=== PATIENT | male | born 1950 | race Caucasian/White ===

== ENCOUNTER 2017-10-24 19:24 | Emergency (ER) | payer OTHER ==
[2017-10-24 20:15] LABS: Urine Blood 2+ (NEG); Urine Glucose NEGATIVE (NEG); Urine Protein 3+ (NEG); Urine Specific Gravity >1.030 (1.005-1.030)
[2017-10-24 20:17] LABS: Urine Bacteria <20 /HPF (NONE SEEN); Urine Culture Reflex Order NOT NEEDED
[2017-10-24 20:43] LABS: Absolute Lymphocytes (CBC) 0.4 K/uL (0.7-4.9); Absolute Monocytes 0.8 K/uL (0.1-1.3); Absolute Neutrophil 13.1 K/uL (1.8-8.0); Basophils % 0.9 % (0-1.3); Eosinophils % 0.3 % (0-4.4); Lymphocytes % 2.8 % (15.3-44.8); MCH 30.7 pg (27.0-35.0); MCV 91.8 fL (80-100); Monocytes % 5.8 % (3.3-12.3); RBC Red Blood Cell Count 4.57 M/uL (4.33-5.43)
[2017-10-24 20:47] LABS: Protime INR 1.22
[2017-10-24 21:01] LABS: Albumin 3.6 g/dL (3.4-5.0); Bilirubin Direct 0.3 mg/dL (0-0.2); Bilirubin Total 1.3 mg/dL (0.2-1.0); CKMB Creatine Kinase MB 2.9 ng/mL (0.3-3.6); Potassium 3.6 mmol/L (3.5-5.1); Protein, Total 7.5 g/dL (6.4-8.2)
[2017-10-24 21:25] LABS: Blood Morphology Comment NOT SEEN (NOT SEEN); Platelet Estimate ADEQ; Urine White Blood Cell Casts OK
--- NOTE | 2017-10-24 23:11 | EDPHYS ---
Physician Documentation [facility] Name: Luis Johnson Age: 67 yrs Sex: Male : 1950 Arrival Date: 10/24/2017 Time: 19:27 Bed 25 Private MD: Brooklyn Casas H ED Physician Ryan Mclaughlin HPI: 10/24 20:00 This 67 yrs old Male presents to ER via Ambulatory with complaints of Fever. cp 20:00 The patient reports fever, that was measured at 103 degrees Fahrenheit. Onset: The cp symptoms/episode began/occurred 3 day(s) ago. 20:00 Associated signs and symptoms: Pertinent positives: backache, chills, Pertinent cp negatives: abdominal pain, altered mental status, chest pain, cough, diarrhea, skin rash, sore throat, vomiting. 20:00 Severity of symptoms: in the emergency department the symptoms have improved cp moderately, after taking tylenol at Urgent Care. 20:00 The patient has been recently seen at an urgent care, just prior to arrival, for cp similar complaints, and was sent to the [facility] Emergency Department for further evaluation, UA performed. Patient reports he recently returned from vacation this weekend and reports fever for past 3 days. Reports that while on vacation, did have some shortness of breath while hiking but denies any chest pain. Historical: - Allergies: 19:37 lactose (bulk); aj - Home Meds: 19:37 None [Active]; aj - PMHx: 19:37 None; aj - PSHx: 19:37 Shoulder surgery; aj - Immunization history:: Adult Immunizations up to date. - Social history:: Smoking status: Patient uses tobacco products. - Ebola Screening: : Patient negative for fever greater than or equal to 101.5 degrees Fahrenheit, and additional compatible Ebola Virus Disease symptoms Patient denies exposure to infectious person Patient denies travel to an Ebola-affected area in the 21 days before illness onset No symptoms or risks identified at this time. ROS: 20:05 Constitutional: Positive for chills, Negative for fever, poor PO intake. cp 20:05 Eyes: Negative for injury, pain, redness, and discharge. cp 20:05 ENT: Negative for drainage from ear(s), ear pain, sore throat, difficulty swallowing, difficulty handling secretions. 20:05 Neck: Negative for pain with movement, pain at rest, stiffness, tenderness, bony tenderness. 20:05 Cardiovascular: Negative for chest pain, edema, palpitations. 20:05 Respiratory: Negative for cough, shortness of breath, wheezing. 20:05 Abdomen/GI: Negative for abdominal pain, nausea, vomiting, and diarrhea, black/tarry stool, rectal bleeding. 20:05 Back: Negative for pain at rest, pain with movement, radiated pain. 20:05 : Negative for urinary symptoms. 20:05 Skin: Negative for cellulitis, rash. 20:05 Neuro: Negative for altered mental status, dizziness, headache, weakness. 20:05 All other systems are negative. Exam: 20:11 Constitutional: The patient appears in no acute distress, alert, awake, cp non-diaphoretic, non-toxic, well developed, well nourished. 20:11 Head/Face: Normocephalic, atraumatic. Eyes: Pupils equal round and reactive to light, cp extra-ocular motions intact. Lids and lashes normal. Conjunctiva and sclera are non-icteric and not injected. Cornea within normal limits. Periorbital areas with no swelling, redness, or edema. ENT: Nares patent. No nasal discharge, no septal abnormalities noted. Tympanic membranes are normal and external auditory canals are clear. Oropharynx with no redness, swelling, or masses, exudates, or evidence of obstruction, uvula midline. Mucous membranes moist. 20:11 Neck: ROM/movement: is normal, is supple, without pain, no range of motions limitations, no meningismus, no nuchal rigidity, Lymph nodes: no appreciated lymphadenopathy. 20:11 Chest/axilla: Inspection: normal, Palpation: is normal, no crepitus, no tenderness. 20:11 Cardiovascular: Rate: normal, Rhythm: regular, Pulses: Pulses are 2+ in right radial artery and left radial artery. Edema: is not appreciated, JVD: is not appreciated. 20:11 Respiratory: the patient does not display signs of respiratory distress, Respirations: normal, no use of accessory muscles, no retractions, no splinting, no tachypnea, labored breathing, is not present, Breath sounds: are clear throughout, no decreased breath sounds, no stridor, no wheezing. 20:11 Abdomen/GI: Inspection: abdomen appears normal, Bowel sounds: active, all quadrants, Palpation: abdomen is soft and non-tender, in all quadrants, rebound tenderness, is not appreciated, voluntary guarding, is not appreciated, involuntary guarding, is not appreciated. 20:11 Back: pain, that is mild, of the low back area, ROM is normal, CVA tenderness, is absent. 20:11 Musculoskeletal/extremity: Exam is negative for decreased range of motion, edema, injury. 20:11 Skin: cellulitis, is not appreciated, no rash present. 20:11 Neuro: Orientation: to person, place \T\ time. Mentation: lucid, able to follow commands, Cerebellar function: is grossly normal, Motor: moves all fours, strength is normal, Sensation: no obvious gross deficits. 20:15 ECG was reviewed by the Attending Physician. Vital Signs: 19:37 BP 109 / 76; Pulse 85; Resp 19; Temp 99.1; Pulse Ox 99% on R/A; Weight 90.72 kg; Height aj 6 ft. 4 in. (193.04 cm); 19:50 BP 109 / 72; Pulse 74; Resp 18; Pulse Ox 98% ; tl3 21:30 BP 112 / 77; Pulse 94; Resp 18; Pulse Ox 98% on R/A; mt 19:37 Body Mass Index 24.34 (90.72 kg, 193.04 cm) aj MDM: 19:40 Patient medically screened. cp 22:45 Data reviewed: vital signs, nurses notes, lab test result(s), EKG, radiologic studies, cp plain films. 22:45 Counseling: I had a detailed discussion with the patient and/or guardian regarding: Reviewed repeat troponin. Went to discuss elevated troponin level with patient, but patient has left ED w/o notification to nurse or staff. 22:50 ED course: Spoke with patient at home number listed in chart concerning repeat elevated cp troponin. Patient refuses to return to ED for admission and reports he will f/u with DR Casas tomorrow.. 23:59 ED course: called patient after demanding to leave notified him that his heart marker gs was still elevated and needed to return and have a mainframe developer see him rosa. he says he will see dr casas tomorrow. 10/24 19:59 Order name: Urine Microscopic Only; Complete Time: 20:36 cp 10/24 20:36 Interpretation: Normal except: URBC 5-10. cp 10/24 19:59 Order name: Basic Metabolic Panel; Complete Time: 21:08 cp 10/24 21:08 Interpretation: Normal except: NA 132; BUN 25; GFR 61. cp 10/24 19:59 Order name: Blood Culture Adult (2) cp 10/24 19:59 Order name: CBC with Diff; Complete Time: 21:26 cp 10/24 21:09 Interpretation: Normal except: WBC 14.5; AMIE% 90.2; LYM% 2.8; NEUT A 13.1; LYMA 0.4. cp 10/24 19:59 Order name: Ckmb; Complete Time: 21:08 cp 10/24 19:59 Order name: CPK; Complete Time: 21:08 cp 10/24 19:59 Order name: Lactate; Complete Time: 21:08 cp 10/24 19:59 Order name: LFT's; Complete Time: 21:08 cp 10/24 21:09 Interpretation: Normal except: BILIT 1.3; BILID 0.3; GLOB 3.9; A/G 0.9. cp 10/24 19:59 Order name: Lipase; Complete Time: 21:08 cp 10/24 19:59 Order name: Procalcitonin; Complete Time: 21:26 cp 10/24 21:26 Interpretation: Reviewed. 10/24 19:59 Order name: Protime (+inr); Complete Time: 21:08 cp 10/24 21:27 Interpretation: Normal except: PT 14.4. cp 10/24 19:59 Order name: Ptt, Activated; Complete Time: 21:08 cp 10/24 19:59 Order name: Troponin (emerg Dept Use Only); Complete Time: 21:17 cp 10/24 21:18 Interpretation: TROPED 2.35; Reviewed. cp 10/24 20:05 Order name: Urine Dipstick--Ancillary (enter results); Complete Time: 20:36 rg2 10/24 20:36 Interpretation: Normal except: USPGR >1.030; UKET 1+; UBLD 2+; UPROT 3+. cp 10/24 19:59 Order name: Accucheck; Complete Time: 20:24 cp 10/24 19:59 Order name: Cardiac monitoring; Complete Time: 20:23 cp 10/24 19:59 Order name: EKG - Nurse/Tech; Complete Time: 20:23 10/24 19:59 Order name: IV Saline Lock - Large Bore; Complete Time: 20:23 10/24 19:59 Order name: Labs collected and sent; Complete Time: 20:23 10/24 19:59 Order name: O2 Per Protocol; Complete Time: 20:23 10/24 19:59 Order name: O2 Sat Monitoring; Complete Time: 20:23 10/24 19:59 Order name: Urine Dipstick-Ancillary (obtain specimen); Complete Time: 20:23 10/24 20:24 Order name: Flu; Complete Time: 21:47 mt 10/24 20:37 Order name: XRAY Chest (1 view) 10/24 20:48 Order name: CBC Smear Scan; Complete Time: 21:26 [facility] 10/24 22:02 Order name: Troponin I; Complete Time: 22:42 cp EC:15 Rate is 73 beats/min. Rhythm is regular. CO interval is normal. QRS interval is cp prolonged at 106 msec. QT interval is normal. T waves are Flattened in lead aVL. Interpreted by me. Reviewed by me. Administered Medications: No medications were administered Disposition: 10/25 06:45 Co-signature as Attending Physician, Ryan Mclaughlin MD. Disposition: 10/24/17 23:10 Patient left the facility after being seen by provider. Preliminary diagnosis is Non-ST elevation (NSTEMI) myocardial infarction. - Patient left due to feeling better. - Condition is Stable. - Problem is new. - Symptoms have improved. Signatures: Dispatcher [employer] [facility] Luana Fritz, RN RN Wyatt Jha PA PA Ryan Mclaughlin MD MD Patito Mckeon RN RN tl3 Corrections: (The following items were deleted from the chart) 10/24 21:09 21:09 Normal except: WBC 14.5; AMIE% 90.2; LYM% 2.8; NEUT A 13.1. cp cp 22:04 21:31 Chest Abdomen Pelvis W Con+CT.RAD.BRZ ordered. [facility] 23:20 23:10 10/24/2017 23:10 Patient left the facility after being seen by provider. tl3 Preliminary diagnosis is Non-ST elevation (NSTEMI) myocardial infarction. Reason stated they are leaving due to feeling better. Condition is Stable. Problem is new. Symptoms have improved. cp
--- NOTE | 2017-10-24 23:11 | ER ---
Nurse's Notes [facility] Name: Luis Johnson Age: 67 yrs Sex: Male : 1950 Arrival Date: 10/24/2017 Time: 19:27 Bed 25 Private MD: Brooklyn Casas H Diagnosis: Non-ST elevation (NSTEMI) myocardial infarction Presentation: 10/24 19:36 Presenting complaint: Patient states: Reports fever for 3 days, Sent from urgent care. aj Transition of care: patient was not received from another setting of care. Onset of symptoms was October 21, 2017. Risk Assessment: Do you want to hurt yourself or someone else? Patient reports no desire to harm self or others. Initial Sepsis Screen: Does the patient meet any 2 criteria? No. Patient's initial sepsis screen is negative. Does the patient have a suspected source of infection? No. Patient's initial sepsis screen is negative. Care prior to arrival: None. 19:36 Method Of Arrival: Ambulatory 19:36 Acuity: RODRI 4 aj Triage Assessment: 19:37 General: Appears in no apparent distress. comfortable, Behavior is calm, cooperative, aj appropriate for age. Pain: Denies pain. Neuro: Level of Consciousness is awake, alert, obeys commands, Oriented to person, place, time, situation, Appropriate for age. Respiratory: Airway is patent Respiratory effort is even, unlabored, Respiratory pattern is regular, symmetrical. Derm: Skin is intact, is healthy with good turgor, Skin is pink, warm \T\ dry. normal. Historical: - Allergies: 19:37 lactose (bulk); aj - Home Meds: 19:37 None [Active]; aj - PMHx: 19:37 None; aj - PSHx: 19:37 Shoulder surgery; aj - Immunization history:: Adult Immunizations up to date. - Social history:: Smoking status: Patient uses tobacco products. - Ebola Screening: : Patient negative for fever greater than or equal to 101.5 degrees Fahrenheit, and additional compatible Ebola Virus Disease symptoms Patient denies exposure to infectious person Patient denies travel to an Ebola-affected area in the 21 days before illness onset No symptoms or risks identified at this time. Screenin:50 Abuse screen: Denies threats or abuse. Nutritional screening: No deficits noted. tl3 Tuberculosis screening: No symptoms or risk factors identified. Fall Risk None identified. Assessment: 19:50 General: Appears in no apparent distress. comfortable, slender, well groomed, well tl3 developed, well nourished, Behavior is calm, cooperative, appropriate for age. Pain: Denies pain. Pain: Complains of pain in joint discomfort. Neuro: Level of Consciousness is awake, alert, obeys commands, Oriented to person, place, time, situation, Appropriate for age. Cardiovascular: Heart tones S1 S2 present Patient's skin is warm and dry. Respiratory: Airway is patent Respiratory effort is even, unlabored, Respiratory pattern is regular, symmetrical, Breath sounds are clear bilaterally. GI: No signs and/or symptoms were reported involving the gastrointestinal system. : Urine is jimmy colored. EENT: No signs and/or symptoms were reported regarding the EENT system. Derm: No signs and/or symptoms reported regarding the dermatologic system. Musculoskeletal: No signs and/or symptoms reported regarding the musculoskeletal system. 21:30 Reassessment: Patient appears in no apparent distress at this time. No changes from tl3 previously documented assessment. Patient and/or family updated on plan of care and expected duration. Pain level reassessed. Patient is alert, oriented x 3, equal unlabored respirations, skin warm/dry/pink. pt states that he is feeling much better. 22:33 Reassessment: Patient appears in no apparent distress at this time. No changes from tl3 previously documented assessment. Patient and/or family updated on plan of care and expected duration. Pain level reassessed. Patient is alert, oriented x 3, equal unlabored respirations, skin warm/dry/pink. pt does not want to stay, Dr Mclaughlin and Beto have stressed the importance of staying due to elevated cardiac enzyme lab levels. Vital Signs: 19:37 BP 109 / 76; Pulse 85; Resp 19; Temp 99.1; Pulse Ox 99% on R/A; Weight 90.72 kg; Height aj 6 ft. 4 in. (193.04 cm); 19:50 BP 109 / 72; Pulse 74; Resp 18; Pulse Ox 98% ; tl3 21:30 BP 112 / 77; Pulse 94; Resp 18; Pulse Ox 98% on R/A; mt 19:37 Body Mass Index 24.34 (90.72 kg, 193.04 cm) ED Course: 19:27 Patient arrived in ED. am2 19:27 Brooklyn Casas DO is Private Physician. am2 19:37 Triage completed. aj 19:37 Arm band placed on right wrist. Patient placed in an exam room. aj 19:39 Wyatt Robles PA is PHCP. cp 19:40 Ryan Mclaughlin MD is Attending Physician. cp 19:42 Patito Mckeon, JENNIFER is Primary Nurse. tl3 19:50 Patient has correct armband on for positive identification. Bed in low position. Call tl3 light in reach. Side rails up X 1. Adult w/ patient. Pulse ox on. NIBP on. 19:50 No provider procedures requiring assistance completed. Inserted saline lock: 20 gauge tl3 in right antecubital area, using aseptic technique. Blood collected. 21:03 XRAY Chest (1 view) In Process Unspecified. EDMS 22:33 IV discontinued, intact, bleeding controlled, No redness/swelling at site. Pressure tl3 dressing applied. 23:07 Brooklyn Casas DO is Referral Physician. cp Administered Medications: No medications were administered Outcome: 22:33 AMA AMA form signed tl3 22:36 Condition: stable tl3 22:36 Instructed on follow up and referral plans. the need for admit. 23:20 Patient left the ED. tl3 Signatures: Dispatcher [employer] Luana Goins, RN RN Wyatt Jha PA PA cp Moreno, Amanda am Aimee Meyer mt, Tammy, RN RN tl3
[2017-10-24 23:32] VITALS: TEMP 99.1
[2017-10-24 23:33] VITALS: O2SAT 98
[2017-10-24 23:34] VITALS: BP 112/77
--- NOTE | 2017-10-25 07:54 | RAD REPORT ---
EXAM DESCRIPTION: RAD - Chest Single View - 10/24/2017 9:03 pm CLINICAL HISTORY: Fever COMPARISON: None. TECHNIQUE: AP portable chest image was obtained 5 hours . FINDINGS: Lung volumes are normal. Trace amount of stranding is seen at the left base abutting eleva jocelyn left hemidiaphragm. This is most likely scarring or atelectasis. Focal infiltrate is not suspecte d. Posterior gutters are not fully assessed on portable imaging. No failure or volume overload suspec jocelyn. Heart and vasculature are normal. No measurable pleural effusion and no pneumothorax. No gross b javi abnormality seen. No acute aortic findings suspected. IMPRESSION: Minimal lung base scarring or atelectasis. No pneumonia, failure or lung mass identifiab le.
--- NOTE | 2017-10-25 09:45 | EKG ---
Test Date: 2017-10-24 Test Time: 20:11:23 Public Health Social Worker: CANDI MEASUREMENT RESULTS: Intervals: Rate: 73 FL: 140 QRSD: 106 QT: 378 QTc: 416 [place]: P: 84 FL: 140 QRS: 58 T: 73 INTERPRETIVE STATEMENTS: Normal sinus rhythm Normal ECG Compared to ECG 12/14/2003 16:12:00 Sinus bradycardia no longer present Electronically Signed On 10-25-17 09:44:03 CDT by Grayson Espinoza
== END 2017-10-24 23:20 | disposition left against medical advice (07) ==
LOC: ER 19:24
DX: I21.4 Non-ST elevation (NSTEMI) myocardial infarction (principal); Z91.011 Allergy to milk products; Z53.21 Procedure and treatment not carried out due to patient leaving prior to being seen by health care provider
CPT/HCPCS: 36415; 71045; 80048; 80076; 81003; 81015; 82550; 82553; 83605; 83690; 84145; 84484; 85025; 85610; 85730; 87040; 87804; 93005; 99284

== ENCOUNTER 2017-10-27 09:34 | Inpatient (IN) | payer OTHER ==
[2017-10-27 10:14] LABS: Urine Blood 2+ (NEG); Urine Glucose NEGATIVE (NEG); Urine Protein 1+ (NEG)
[2017-10-27 10:36] LABS: Urine Bacteria <20 /HPF (NONE SEEN); Urine Culture Reflex Order REFLEXED
[2017-10-27 10:54] LABS: Absolute Monocytes 1.8 K/uL (0.1-1.3); Absolute Neutrophil 11.4 K/uL (1.8-8.0); Basophils % 0.6 % (0-1.3); Eosinophils % 0.1 % (0-4.4); Hematocrit 44.2 % (39.6-49.0); Lymphocytes % 7.3 % (15.3-44.8); MCH 29.8 pg (27.0-35.0); MCV 91.7 fL (80-100); MPV 8.6 fL (7.6-11.3); Monocytes % 12.3 % (3.3-12.3); RBC Red Blood Cell Count 4.82 M/uL (4.33-5.43)
[2017-10-27 10:57] LABS: Protime INR 1.18
[2017-10-27 11:15] LABS: Albumin 3.2 g/dL (3.4-5.0); Bilirubin Direct 0.1 mg/dL (0-0.2); Bilirubin Total 0.6 mg/dL (0.2-1.0); Potassium 4.1 mmol/L (3.5-5.1); Protein, Total 7.4 g/dL (6.4-8.2)
--- NOTE | 2017-10-27 11:18 | RAD REPORT ---
EXAM DESCRIPTION: RAD - Chest Single View - 10/27/2017 10:16 am CLINICAL HISTORY: Fever, chills, body ache, elevated troponin COMPARISON: October 24 TECHNIQUE: AP portable chest image was obtained 1013 hours . FINDINGS: No mass, consolidation or failure. Interstitial markings are prominent but unchanged. Hear t and vasculature are normal. No measurable pleural effusion and no pneumothorax. No gross bony abnor mality seen. No acute aortic findings suspected. IMPRESSION: No acute cardiopulmonary process. Interstitial pattern is prominent but unchanged.
[2017-10-27] MEDS ORDERED: NA CHLORIDE 0.9% 500 ML ONE (12:05)
[2017-10-27] MEDS ORDERED: CEFTRIAXONE/SWI 1gm 1 GM/10 ML SYR ONE (12:06)
[2017-10-27] MEDS ORDERED: ONDANSETRON 4 MG/2 ML VIAL IV PRN (12:20)
--- NOTE | 2017-10-27 12:23 | ER ---
Nurse's Notes [facility] Name: Luis Johnson Age: 67 yrs Sex: Male : 1950 Arrival Date: 10/27/2017 Time: 09:37 Bed 20 Private MD: Brooklyn Casas H Diagnosis: Urinary tract infection, site not specified Presentation: 10/27 09:53 Presenting complaint: Patient states: fever, chills and body aches that began 2-3 days ss ago. Pt was seen in ER for similar symptoms October 24, 2017 was told he needed to be admitted for elevated troponin, but decided against staying and went home. Pt also c/o urinary frequency. Transition of care: patient was not received from another setting of care. Onset of symptoms was October 16, 2017. Risk Assessment: Do you want to hurt yourself or someone else? Patient reports no desire to harm self or others. Initial Sepsis Screen: Does the patient meet any 2 criteria? No. Patient's initial sepsis screen is negative. Does the patient have a suspected source of infection? No. Patient's initial sepsis screen is negative. Care prior to arrival: None. 09:53 Method Of Arrival: Ambulatory ss 09:53 Acuity: RODRI 3 ss Historical: - Allergies: 10:00 lactose (bulk); ss - Home Meds: 10:01 None [Active]; ss - PMHx: 10:00 None; em - Immunization history:: Adult Immunizations up to date. - Social history:: Smoking status: Patient/guardian denies using tobacco. - Ebola Screening: : Patient denies exposure to infectious person Patient denies travel to an Ebola-affected area in the 21 days before illness onset. - Family history:: not pertinent. - Hospitalizations: : No recent hospitalization is reported. Screenin:51 Abuse screen: Denies threats or abuse. Nutritional screening: No deficits noted. em Tuberculosis screening: No symptoms or risk factors identified. Fall Risk None identified. Assessment: 10:20 General: Appears in no apparent distress. comfortable, well groomed, well developed, em well nourished, Behavior is calm, cooperative. Pain: Denies pain. Neuro: Level of Consciousness is awake, alert, obeys commands, Oriented to person, place, time, situation, Reports headache Denies weakness blurred vision dizziness. Cardiovascular: Denies chest pain, palpitations, shortness of breath, Capillary refill < 3 seconds Patient's skin is warm and dry. Rhythm is sinus rhythm Chest pain is denied. Respiratory: Airway is patent Respiratory effort is even, unlabored, Respiratory pattern is regular, symmetrical, Breath sounds are clear bilaterally. GI: Patient currently denies nausea, vomiting. : Urine is clear, Last void was October 27, 2017. Reports urinary frequency, since 10/22/17. EENT: No signs and/or symptoms were reported regarding the EENT system. Derm: Skin is intact, Skin is pink, warm \T\ dry. Musculoskeletal: Range of motion: intact in all extremities. 10:30 General: The previous assessment is accurate, call light remains within reach. . ss 11:20 Reassessment: Patient appears in no apparent distress at this time. Patient and/or em family updated on plan of care and expected duration. Pain level reassessed. Patient is alert, oriented x 3, equal unlabored respirations, skin warm/dry/pink. denies chest pain at this time, has urinal at bedside, has voided 200 mL. 12:01 Reassessment: Patient appears in no apparent distress at this time. Dr. Phillips at em bedside, discussing POC. 12:25 Reassessment: Patient appears in no apparent distress at this time. Patient and/or em family updated on plan of care and expected duration. Pain level reassessed. Patient is alert, oriented x 3, equal unlabored respirations, skin warm/dry/pink. pt shivering, oral temp 98.4, warm blanket given. 12:54 Reassessment: Dr. Jiménez at bedside discussing POC. em 13:15 Reassessment: received verbal order from Dr. Jiménez to check rectal temp. on pt since he em was shivering, rectal temp. 101.3, Dr. Phillips notified, new medication orders received. 13:23 Reassessment: unable to give report due to room being dirty, charge nurse notified. em 14:05 Reassessment: Patient appears in no apparent distress at this time. Patient and/or em family updated on plan of care and expected duration. Pain level reassessed. report called to JENNIFER Cardenas states will be ready in 10 minutes. Vital Signs: 10:00 BP 101 / 62; Pulse 68; Resp 16; Temp 97.1(TE); Pulse Ox 99% on R/A; ss 10:57 BP 112 / 64; Pulse 88; Resp 16; Pulse Ox 100% on R/A; Pain 0/10; em 11:30 BP 117 / 71; Pulse 66; Resp 16; Pulse Ox 99% on R/A; em 12:22 BP 131 / 88; Pulse 79; Resp 18; Temp 98.4(O); Pulse Ox 99% on R/A; Pain 0/10; em 13:00 BP 143 / 75; Pulse 87; Resp 18; Pulse Ox 99% on R/A; em 13:28 Weight 90.72 kg; Height 6 ft. 4 in. (193.04 cm); em 14:00 BP 122 / 57; Pulse 88; Resp 16; Pulse Ox 99% on R/A; em 13:28 Body Mass Index 24.34 (90.72 kg, 193.04 cm) em ED Course: 09:37 Patient arrived in ED. sb2 09:38 Brooklyn Casas DO is Private Physician. sb2 09:41 Sergo Lerma LVN is Primary Nurse. em 09:43 Mark Anthony Phillips MD is Attending Physician. rn 10:00 Triage completed. ss 10:00 Arm band placed on right wrist. ss 10:08 Urine collected: clean catch specimen, clear. ss 10:16 X-ray completed. Portable x-ray completed in exam room. Patient tolerated procedure la2 well. 10:17 XRAY Chest (1 view) In Process Unspecified. EDMS 10:30 Inserted saline lock: 20 gauge in right antecubital area, using aseptic technique. em Blood collected. 10:30 Initial lab(s) drawn, by me, sent to lab. First set of blood cultures drawn by me. em 10:51 Patient has correct armband on for positive identification. Placed in gown. Bed in low em position. Call light in reach. Side rails up X2. Adult w/ patient. 12:23 Melissa Jiménez MD is Hospitalizing Provider. rn 12:23 No provider procedures requiring assistance completed. em 14:04 Patient admitted, IV remains in place. em Administered Medications: 12:20 Drug: Rocephin - (cefTRIAXone) 1 grams Route: IVPB; Infused Over: 30 mins; Site: right ss antecubital; 12:35 Follow up: Response: No adverse reaction; IV Status: Completed infusion em 12:20 Drug: NS 0.9% 500 ml Route: IV; Rate: bolus; Site: right antecubital; em 12:34 Follow up: IV Status: Completed infusion; IV Intake: 500ml em 13:17 Drug: Motrin 800 mg Route: PO; em 14:04 Follow up: Response: No adverse reaction em Intake: 12:34 IV: 500ml; Total: 500ml. em Outcome: 12:23 Decision to Hospitalize by Provider. rn 14:04 Admitted to Tele accompanied by tech, family with patient, via wheelchair, room 221, em Report called to JENNIFER Cardenas 14:04 Condition: good 14:04 Instructed on the need for admit, Demonstrated understanding of instructions. 14:28 Patient left the ED. em Signatures: Dispatcher [employer] EDMS Sergo Lerma, APPLICATION SUPPORT ANALYST APPLICATION SUPPORT ANALYST em Mark Anthony Phillips MD MD rn Smirch, Shelby, RN RN Kassandra Rebolledo2 Kenzie Gonzales2 Corrections: (The following items were deleted from the chart) 10:08 09:53 Presenting complaint: Patient states: fever, chills and body aches that began 2-3 ss days ago. Pt was seen in ER for similar symptoms September, was told her needed to be admitted for elevated troponin, but decided against staying and went home. Pt also c/o urinary frequency. ss 11:38 10:20 Neuro: Level of Consciousness is awake, alert, obeys commands, Oriented to em person, place, time, situation, Reports headache em 12:00 11:20 Reassessment: Patient appears in no apparent distress at this time. Patient em and/or family updated on plan of care and expected duration. Pain level reassessed. Patient is alert, oriented x 3, equal unlabored respirations, skin warm/dry/pink. em 13:17 12:25 Reassessment: Patient appears in no apparent distress at this time. Patient em and/or family updated on plan of care and expected duration. Pain level reassessed. Patient is alert, oriented x 3, equal unlabored respirations, skin warm/dry/pink. warm blanket given em
--- NOTE | 2017-10-27 12:24 | EDPHYS ---
Physician Documentation [facility] Name: Luis Johnson Age: 67 yrs Sex: Male : 1950 Arrival Date: 10/27/2017 Time: 09:37 Bed 20 Private MD: Brooklyn Casas H ED Physician Mark Anthony Phillips HPI: 10/27 10:50 This 67 yrs old Male presents to ER via Ambulatory with complaints of Fever, rn Urinary Frequency. 10:50 The patient reports fever, that was measured at 102 degrees Fahrenheit. Onset: The rn symptoms/episode began/occurred 5 day(s) ago. Modifying factors: there are no obvious modifying factors. Associated signs and symptoms: Pertinent positives: chills. Severity of symptoms: At their worst the symptoms were mild in the emergency department the symptoms are unchanged. The patient has not experienced similar symptoms in the past. The patient has been recently seen by a physician:. Reports fever, urinary frequency, seen here 5 days ago, had elevated troponin, went home AMA, felt better, returns today because of fever persisting for 5 days, + mild headache with fever but goes away with fever treatment, no cough/sore throat/sob/chest pain/abd pain/vomiting. . Historical: - Allergies: 10:00 lactose (bulk); ss - Home Meds: 10:01 None [Active]; ss - PMHx: 10:00 None; em - Immunization history:: Adult Immunizations up to date. - Social history:: Smoking status: Patient/guardian denies using tobacco. - Ebola Screening: : Patient denies exposure to infectious person Patient denies travel to an Ebola-affected area in the 21 days before illness onset. - Family history:: not pertinent. - Hospitalizations: : No recent hospitalization is reported. ROS: 10:50 Constitutional: + fever and chills Eyes: Negative for injury, pain, redness, and audit practice intern, Neck: Negative for injury, pain, and swelling, Cardiovascular: Negative for chest pain, palpitations, and edema, Respiratory: Negative for shortness of breath, cough, wheezing, and pleuritic chest pain, Abdomen/GI: Negative for abdominal pain, nausea, vomiting, diarrhea, and constipation, MS/Extremity: Negative for injury and deformity, Skin: Negative for injury, rash, and discoloration, Neuro: Negative for weakness, numbness, tingling, and seizure. Exam: 10:50 Constitutional: This is a well developed, well nourished patient who is awake, alert, rn and in no acute distress. Head/Face: Normocephalic, atraumatic. Eyes: Pupils equal round and reactive to light, extra-ocular motions intact. Lids and lashes normal. Conjunctiva and sclera are non-icteric and not injected. Cornea within normal limits. Periorbital areas with no swelling, redness, or edema. ENT: Nares patent. No nasal discharge, no septal abnormalities noted. Oropharynx with no redness, swelling, or masses, exudates, or evidence of obstruction, uvula midline. Mucous membranes moist. Cardiovascular: Regular rate and rhythm with a normal S1 and S2. No gallops, murmurs, or rubs. Normal PMI, no JVD. No pulse deficits. Respiratory: Lungs have equal breath sounds bilaterally, clear to auscultation and percussion. No rales, rhonchi or wheezes noted. No increased work of breathing, no retractions or nasal flaring. Abdomen/GI: Soft, non-tender, with normal bowel sounds. No distension or tympany. No guarding or rebound. No evidence of tenderness throughout. MS/ Extremity: Pulses equal, no cyanosis. Neurovascular intact. Full, normal range of motion. Equal circumference. Neuro: Awake and alert, GCS 15, oriented to person, place, time, and situation. Cranial nerves II-XII grossly intact. Motor strength 5/5 in all extremities. Sensory grossly intact. Vital Signs: 10:00 BP 101 / 62; Pulse 68; Resp 16; Temp 97.1(TE); Pulse Ox 99% on R/A; ss 10:57 BP 112 / 64; Pulse 88; Resp 16; Pulse Ox 100% on R/A; Pain 0/10; em 11:30 BP 117 / 71; Pulse 66; Resp 16; Pulse Ox 99% on R/A; em 12:22 BP 131 / 88; Pulse 79; Resp 18; Temp 98.4(O); Pulse Ox 99% on R/A; Pain 0/10; em 13:00 BP 143 / 75; Pulse 87; Resp 18; Pulse Ox 99% on R/A; em 13:28 Weight 90.72 kg; Height 6 ft. 4 in. (193.04 cm); em 14:00 BP 122 / 57; Pulse 88; Resp 16; Pulse Ox 99% on R/A; em 13:28 Body Mass Index 24.34 (90.72 kg, 193.04 cm) em MDM: 09:43 Patient medically screened. rn 12:03 ED course: Bedside U/s performed, no pericardial effusion noted. . rn 12:21 Differential diagnosis: viral Infection, bacterial infection, pneumonia UTI. Data rn reviewed: vital signs, nurses notes, lab test result(s), EKG, radiologic studies, plain films, and as a result, I will admit patient. Counseling: I had a detailed discussion with the patient and/or guardian regarding: the historical points, exam findings, and any diagnostic results supporting the discharge/admit diagnosis, lab results, radiology results, the need for further work-up and treatment in the hospital. Response to treatment: the patient's symptoms have mildly improved after treatment, and as a result, I will admit patient. Admission orders: after a detailed discussion of the patient's condition and case, the admit orders are written by me. ED course: Pt with multiple visits, still febrile, + glitter cells and elevated WBC/troponin, will treat as UTI given glitter cells and urinary symptoms. Admitted to Dr. Jiménez. . 10/27 09:58 Order name: CBC with Diff; Complete Time: 13:04 10/27 09:58 Order name: Basic Metabolic Panel; Complete Time: 11:10/27 09:58 Order name: Protime (+inr); Complete Time: 11:10/27 09:58 Order name: Ptt, Activated; Complete Time: 11:10/27 09:58 Order name: Blood Culture Adult (2) rn 10/27 09:58 Order name: Procalcitonin; Complete Time: 11:10/27 09:58 Order name: ESR; Complete Time: 13:04 10/27 09:58 Order name: CRP; Complete Time: 11:10/27 09:58 Order name: Urine Microscopic Only; Complete Time: 11:10/27 09:58 Order name: Urine Culture rn 10/27 09:58 Order name: Hepatic Function; Complete Time: 11:10/27 09:58 Order name: Lipase; Complete Time: 11:31 rn 10/27 10:10 Order name: Urine Dipstick--Ancillary (enter results); Complete Time: 11:05 em1 10/27 10:58 Order name: CBC Smear Scan; Complete Time: 13:04 EDMS 10/27 09:58 Order name: XRAY Chest (1 view); Complete Time: 11:31 rn 10/27 11:30 Order name: Troponin (emerg Dept Use Only); Complete Time: 12:02 em 10/27 12:23 Order name: CONS Pharmacy Consult EDMS 10/27 12:23 Order name: Heart Healthy EDMS 10/27 12:23 Order name: Basic Metabolic Panel EDMS 10/27 12:23 Order name: Basic Metabolic Panel EDMS 10/27 12:23 Order name: Basic Metabolic Panel EDMS 10/27 12:23 Order name: Basic Metabolic Panel EDMS 10/27 12:23 Order name: CBC with Automated Diff EDMS 10/27 12:23 Order name: CBC with Automated Diff EDMS 10/27 12:23 Order name: CBC with Automated Diff EDMS 10/27 12:23 Order name: CBC with Automated Diff EDMS 10/27 14:10 Order name: Creatine Phosphokinase EDMS 10/27 09:58 Order name: IV Start; Complete Time: 10:49 rn 10/27 09:58 Order name: Urine Dipstick-Ancillary (obtain specimen); Complete Time: 10:07 rn 10/27 09:58 Order name: Labs collected and sent; Complete Time: 10:48 rn Administered Medications: 12:20 Drug: Rocephin - (cefTRIAXone) 1 grams Route: IVPB; Infused Over: 30 mins; Site: right ss antecubital; 12:35 Follow up: Response: No adverse reaction; IV Status: Completed infusion em 12:20 Drug: NS 0.9% 500 ml Route: IV; Rate: bolus; Site: right antecubital; em 12:34 Follow up: IV Status: Completed infusion; IV Intake: 500ml em 13:17 Drug: Motrin 800 mg Route: PO; em 14:04 Follow up: Response: No adverse reaction em Disposition: 10/27/17 12:23 Hospitalization ordered by Melissa Jiménez for Inpatient Admission. Preliminary diagnosis is Urinary tract infection, site not specified. - Bed requested for Telemetry/MedSurg (Inpatient). - Status is Inpatient Admission. em - Condition is Stable. - Problem is an ongoing problem. - Symptoms have improved. UTI on Admission? Yes Signatures: Dispatcher [employer] EDSergo Ramirez, CHANGE CONTROL SPECIALIST CHANGE CONTROL SPECIALIST em Mark Anthony Phillips MD MD rn Martinez, Kiel em1 Allyson Aguilar, JENNIFER RN ss Corrections: (The following items were deleted from the chart) 12:23 12:23 Hospitalization Ordered by Melissa Jiménez MD for Inpatient Admission. Preliminary rn diagnosis is Urinary tract infection, site not specified. Bed requested for Telemetry/MedSurg (Inpatient). Status is Inpatient Admission. Condition is Stable. Problem is an ongoing problem. Symptoms have improved. UTI on Admission? No. rn 12:48 12:23 10/27/2017 12:23 Hospitalization Ordered by Melissa Jiménez MD for Inpatient em1 Admission. Preliminary diagnosis is Urinary tract infection, site not specified. Bed requested for Telemetry/MedSurg (Inpatient). Status is Inpatient Admission. Condition is Stable. Problem is an ongoing problem. Symptoms have improved. UTI on Admission? Yes. rn 14:28 12:48 10/27/2017 12:23 Hospitalization Ordered by Melissa Jiménez MD for Inpatient em Admission. Preliminary diagnosis is Urinary tract infection, site not specified. Bed requested for Telemetry/MedSurg (Inpatient). Status is Inpatient Admission. Condition is Stable. Problem is an ongoing problem. Symptoms have improved. UTI on Admission? Yes. em1
[2017-10-27 12:27] LABS: Blood Morphology Comment NOT SEEN (NOT SEEN); Platelet Estimate ADEQ; Urine White Blood Cell Casts OK
[2017-10-27] MEDS: NA CHLORIDE 0.9% 1,000 ML IV SCH ×2 (13:00→21:08)
[2017-10-27] MEDS ORDERED: CEFEPIME/SWI 1gm 1 GM/10 ML SYR IV SCH (13:00)
[2017-10-27] MEDS ORDERED: IBUPROFEN 400 MG TAB ONE (13:14)
[2017-10-27] MEDS ORDERED: CEFEPIME/SWI 2gm 2 GM/20 ML SYR IV ONE (14:00)
[2017-10-27 14:36] VITALS: BMI 24.4
[2017-10-27] MEDS: VANCOMYCIN 1.5 GM in NA CHLORIDE 0.9% 500 ML IVPB SCH (15:52)
[2017-10-27] MEDS ORDERED: PNEUMOCOCCAL VACCINE 0.5 ML IMVAC ONE (16:00)
[2017-10-27] MEDS ORDERED: CEFEPIME 2 GM VIAL IV SCH (21:00)
[2017-10-27] MEDS: CEFEPIME/SWI 2gm 2 GM/20 ML SYR IV SCH (21:07)
--- NOTE | 2017-10-28 00:48 | HP ---
Date of Admission: 10/27/2017 Consultants: Dr. Lopez, Urology. Pcp: Dr. Casas. Chief Complaint: Chills, lethargy. Code Status: Full. No medical power of tax attorney or living will. History Of Present Illness: The patient is a 67-year-old male with past medical history of benign prostatic hyperplasia. No longer takes tamsulosin since 2011 due to side effects. Comes in with approximately 3-day history of fever as high as 103 and chills and shivering. The patient's symptoms are constant, moderate, progressively worsening. No nausea, vomiting, chest pain, shortness of breath, abdominal pain, diarrhea. The patient does report some decreased p.o. intake. The patient has been on vacation for the past 5 weeks, driving to [place] and back. The patient denies any travel outside the country. No unusual foods. The patient does report extreme lactose intolerance and has had some loose stools with food with minimal lactose ingredients. The patient was in the ER 2 days prior to admission. Was worked up with blood cultures and influenza screen negative and did have elevated troponin at that time of 2.0, however, no chest pain or EKG changes. Today, the patient's white count is elevated at 14.3. He has also been seen at the Urgent Care prior to this emergency room visit. His troponin today is 0.14. CRP is elevated. Procalcitonin is negative. UA is positive for WBCs, leukocytes esterase, glitter cells, less than 20 bacteria. Chest x-ray did not show any acute changes. The patient was then referred for admission. He was afebrile; however, core body temperature was not checked. When seen in the ER, he was awake, alert, oriented, shivering and some mild distress. Past Medical History: Benign prostatic hyperplasia, not undergoing treatment. Past Surgical History: None. Allergies: NO KNOWN DRUG ALLERGIES. Medications: No home medications. Social History: The patient denies any tobacco use. Occasional alcohol use. No illicit drug use. The patient is active, independent in his activities of daily living. He is . Family History: Mom has diabetes. Review of Systems: An 11-point system reviewed, negative except as per HPI. Physical Examination: Vital Signs: Blood pressure 101/62, pulse 68, respirations 16, temperature 97.1 , O2 99% on room air. General: Awake, alert, oriented x3. Some mild distress ill-appearing elderly male. HEENT: Normocephalic, atraumatic. PERRLA. EOMI. Dry mucous membranes. Oropharynx is clear. Conjunctivae anicteric. Normal dentition. Neck: Supple. No JVD. Trachea midline. CV: S1, S2. Regular rate and rhythm. No murmurs, rubs, or gallops. Peripheral pulses are present bilaterally. Respiratory: Clear to auscultation bilaterally. No wheezing. No stridor. No use of accessory muscles. Gastrointestinal: Abdomen is soft, nontender, nondistended. Positive bowel sounds. No guarding or rigidity. Extremities: No clubbing, cyanosis, or edema. No calf tenderness. Neuro: Cranial nerves 2-12 intact grossly. No focal neurological deficit. Speech is normal. Sensation intact to light touch. Skin: No rashes. Normal skin turgor. Psych: Mood is okay. Affect is full. Insight and judgment are good. Laboratory Data: Sodium 135, potassium 4.1, chloride 101, CO2 28, BUN 19, creatinine 1.3, glucose 120, calcium 9.2, AST 44, ALT 109, troponin 0.14, CRP 164, albumin 3.2. Procalcitonin 0.37. INR 1.18. WBC 14.3, H and H 14.4 and 44.2, platelets 202, neutrophils 79%. UA 2+ blood, negative nitrite, 1+ leukocyte esterase, 5-10 rbc's, greater than 50 wbc's, glitter cells present, less than 20 bacteria. Chest x-ray shows no acute cardiopulmonary process. Interstitial pattern is prominent but unchanged. Assessment And Plan: A 67-year-old male with: 1. Acute dehydration. 2. Systemic inflammatory response syndrome. Rule out sepsis. White count is elevated. CRP is elevated. The patient is tachypneic, having chills. We will check a core body temperature. The patient did have fever at home of 103. Source of infection is likely urinary tract infection. 3. Urinary tract infection, acute cystitis with hematuria. We will continue on IV cefepime. Obtain urine cultures. Blood cultures have already been obtained. 4. Benign prostatic hyperplasia. Likely has some retention. We will obtain urology consultation with Dr. Lopez. 5. Gastrointestinal and deep venous thrombosis prophylaxis with SCDs and PPI. No chemical anticoagulation due to hematuria. 6. Elevated liver enzymes of unclear etiology. We will check hepatitis panel. 7. Elevated troponin level. No changes on EKG. Bedside ultrasound done by ER physician did not show any pericarditis or effusion. We will continue to monitor, place on cardiac telemetry. Plan: Admit the patient to Med-Surg, place as inpatient. ADDENDUM: APPARENTLY PATIENT HAD LEFT AMA from the ER after being admitted 2 days ago despite having elevated troponin level. /SUHAIL Voice ID: [id number] [id number]
[2017-10-28] MEDS: ACETAMINOPHEN 500 MG TAB PO PRN ×3 (05:02→23:03)
[2017-10-28 05:15] LABS: Absolute Lymphocytes (CBC) 1.2 K/uL (0.7-4.9); Absolute Monocytes 1.2 K/uL (0.1-1.3); Absolute Neutrophil 9.6 K/uL (1.8-8.0); Basophils % 0.2 % (0-1.3); Eosinophils % 0.2 % (0-4.4); Hematocrit 40.2 % (39.6-49.0); Lymphocytes % 9.6 % (15.3-44.8); MCH 30.1 pg (27.0-35.0); MCV 91.2 fL (80-100); MPV 8.4 fL (7.6-11.3); Monocytes % 10.2 % (3.3-12.3); RBC Red Blood Cell Count 4.41 M/uL (4.33-5.43)
[2017-10-28 05:35] LABS: Potassium 3.8 mmol/L (3.5-5.1)
[2017-10-28] MEDS: NA CHLORIDE 0.9% 1,000 ML IV SCH ×3 (09:00→21:31)
[2017-10-28] MEDS ORDERED: TAMSULOSIN 0.4 MG SR CAP PO SCH (09:00)
[2017-10-28] MEDS: CEFEPIME/SWI 2gm 2 GM/20 ML SYR IV SCH ×2 (09:49→21:32)
[2017-10-28] MEDS: VANCOMYCIN 1.5 GM in NA CHLORIDE 0.9% 500 ML IVPB SCH (09:49)
[2017-10-28] MEDS ORDERED: PNEUMOCOCCAL VACCINE 0.5 ML IMVAC ONE (10:00)
--- NOTE | 2017-10-28 14:59 | PN ---
Date of Progress Note: 10/28/2017 Subjective: The patient seen and examined. Chart reviewed and case discussed with RN and Dr. Mann . The patient will be going for a stress test in a.m. Denies any chest pain. The patient refusing Flomax, states that he has a lot of side effects, does not wish to take it and he states that he has urinary retention from benign prostatic hyperplasia, however, still does not wish to take it. He als o is complaining of the food, states that despite been on a lactose-free diet, some of the ingredient s on his tray did have some possible lactose and was not able to tolerate his diet. Review of Systems: Negative except as above. Medications: Reviewed. Physical Examination: Vital Signs: Temperature 97.4, heart rate 74, blood pressure 119/67, respirations 20, O2 94% on room air. General: Awake, alert, oriented x3, not in any acute distress, no further shivering, elderly male, s omewhat ill-appearing. CV: S1, S2. No murmurs. Regular rate and rhythm. Peripheral pulses present. Respiratory: Clear to auscultation bilaterally. No wheezing. Gastrointestinal: Abdomen is soft, nontender, nondistended. Positive bowel sounds. Extremities: No clubbing, cyanosis, or edema. Neurologic: Nonfocal. Laboratory Data: Sodium 139, potassium 3.8, chloride 103, CO2 27, BUN 16, creatinine 1, glucose 112, calcium 8.5. Hepatitis panel pending. WBC 12.1, H and H 13.3, hematocrit 40.2, platelets 205, neut rophils 79.8%. Blood cultures, no growth to date. Urine culture is showing gram-negative rods with ID and sensitivity pending. Assessment And Plan: A 67-year-old male with: 1.Sepsis secondary to urinary tract infection. Core body temperature yesterday was elevated at 101. 3. We will continue with broad-spectrum IV antibiotics. Follow up with cultures. 2.Urinary tract infection, acute cystitis with hematuria, urine culture showing gram-negative rods. We will follow up with ID and sensitivity. Continue IV cefepime. 3.Acute dehydration, improved with IV fluids. 4.Benign prostatic hypertrophy, likely some retention. The patient refusing Flomax. Urology is thalia ng consulted. 5.Elevated troponin level. The patient had elevated troponin level 2 days ago when he was in the ER , had left AMA. Bedside ultrasound did not show any major changes. Dr. Mann with Cardiology is on -board and will go for stress test in the morning. 6.Elevated liver enzymes. Hepatitis panel pending. 7.Gastrointestinal and deep venous thrombosis prophylaxis with SCDs and PPI. No chemical anticoagul ation due to hematuria. 8.Lactose intolerance. We will adjust dietary restrictions. /SUHAIL Voice ID: [id number] Report ID: [id number]
--- NOTE | 2017-10-28 15:59 | CON ---
CARDIOLOGY CONSULT Chief Complaint: Urinary tract infection. History Of Present Illness: Mr. Johnson was on a long road trip, developed symptoms of dysuria, had fev ers up to 102, came to our hospital on October 24, about 4 days ago. He was found to have urinary tract sepsis. He was given antibiotics. He was found at that time to have a troponin that was elevated a t the level of about 2 roughly. He came back 3 days later, not with chest pain, he wanted more help with his urine infection, it seemed to be improving but not quick enough, and he has a troponin now t hat is quite a bit lower. Today, he feels better than when he came in. He is getting intravenous an tibiotics of vancomycin and cefepime that are both being given intravenously. Blood cultures are neg ative so far. Urine culture shows gram-negative rods, but it is not identified. His electrocardiogr am is normal. Chest x-ray is normal. The patient has never had myocardial infarction, stroke. Does not have diabetes, hypertension, dyslipidemia. Uses no tobacco. Rare alcohol. No illegal drugs. Family history is unremarkable. In every way he seems to be a low risk patient to be having an acute ND or an acute coronary syndrome, and he has not had any chest pain, so I have to question whether t his elevated troponin might be all due to septicemia; he probably really was septic. I have recommended that he undergo an echocardiogram and pharmacologic nuclear stress test, we will d o that tomorrow; and if he passes that, we will say this was not, and acute coronary syndrome and tro ponin elevation due to non-coronary causes, mainly septicemia with gram-negative rods. CRISTIANA/SUHAIL Voice ID: [id number] Report ID: [id number]
--- NOTE | 2017-10-28 16:05 | EKG ---
Test Date: 2017-10-27 Test Time: 10:04:22 Child Nutrition Manager: MARGIE MEASUREMENT RESULTS: Intervals: Rate: 65 OR: 144 QRSD: 108 QT: 400 QTc: 416 Cutler: P: 71 OR: 144 QRS: 45 T: 72 INTERPRETIVE STATEMENTS: Normal sinus rhythm Normal ECG Compared to ECG 10/24/2017 20:11:23 No significant changes Electronically Signed On 10-28-17 16:04:00 CDT by Juan Mann
--- NOTE | 2017-10-28 19:19 | CON ---
History Of Present Illness: A 67-year-old gentleman who fell over a lot, was vacationing in [facility]. Apparently drove there with his and has a history of BPH since 2009. He had tried tamsulos in prescribed by his primary care doctor, Dr. Argueta, but it caused some fainting and dizzy spells, so he tried it for every other day x2 years, but it made him very lethargic and dizzy and causing nausea . Therefore stop taking his tamsulosin 2011. He has been having lower urinary tract symptomatology such as frequency on and off, decrease in force of stream, some urgency, nocturia x4, hesitancy on of ten postvoid dribbling. He denies any intermittency. Denies gross hematuria, kidney stones. He was coming back from [place] doing long drives and most likely was not drinking enough water due to t he bathroom situation on the high [place] and probably got dehydrated and developed a urinary tract infe ction. He developed high fevers and shaking chills and shivering. He came to the emergency room 2 days prior to admission and then went home and came back because he was not improving. [place] [address]. Also, he did have an elevated troponin at the time, but no chest pain. No EKG changes. His UA is positive for infection. The culture shows 100,000 om CFUs pe r meal are growing right now gram-negative rods. I went over the options with him. We first will pr escribe antibiotics to clear the infection once infection is cleared. He will need to undergo workup for BPH, cystoscopy, uroflow. Also discussed with him some other medication options. Hytrin was an option, but this can cause dizziness even more so than the tamsulosin versus 5 alpha reductase inhib itors such as finasteride or Avodart versus minimally invasive therapy such as the UroLift versus the TURP or the VaporTrode. He says he has tired right now. He will think about this once he goes home , make a decision by apparently he has had lots of side effects from medications. The thinks he will be better off on a minimal invasive treatment. Past Medical History: BPH, undertreated. Past Surgical History: None. Allergies: NO KNOWN DRUG ALLERGY. Medications: None. Social History: Denies tobacco use. Some alcohol use. No illicit drug use. The patient is active and independent. He is . Family History: Mom has diabetes. Review of Systems: Ten-point review of systems all negative for H and P. Physical Examination: Vital Signs: 97.4, pulse 74, respirations 20, BP 119/67, sats 94% on room air. General: The patient is awake and alert x3. No distress. The is present in the room. HEENT: Normocephalic, atraumatic home. Neck: Supple. Cardiovascular: S1 and S2. Respirations: Clear. Gastrointestinal: Soft, nontender. Extremities: Normal motion. : Both testicles descended, nontender. No masses. Phallus circumcised. No lesions and CECILIA, enla rged prostate gland. Very BPH like and feels like it is almost distended. Laboratory Data: [place] [address] [place] [address] today, H and H 13 and 40, platelet count on 205. Coags are normal. Chemistry; normal sodium 139, potassium 3.8, chloride 103, carbon dioxide 2 7, BUN 16, creatinine 1. GFR up to 75 from 55 yesterday, glucose 112, calcium 8.5. Urine showed pH 7, specific gravity 10/10, ketone negative, blood 2+, nitrite negative, leukocyte esterase 1+, RBCs 5 to 10, WBC greater than 50, squamous cell less than 5, glitter cells present, urine bacteria less th an 20. Urine culture is growing gram-negative rods. Assessment: Urinary tract infection, cystitis. No signs of acute prostatitis. No signs of pyelonep hritis. Continue IV therapy. Await final urine culture. I think it is okay to go ahead and discont inue the vancomycin at this time and continue the cefepime. We will follow the patient with you. Ag ain, all the alternatives were discussed with the patient about going on different BPH medications ve rsus minimal invasive therapy that he will need a cysto uroflow in the office in a few weeks once the infection is cleared. Thank you very much. RODRICK/SUHAIL Voice ID: [id number] Report ID: [id number]
[2017-10-29 05:58] LABS: Absolute Lymphocytes (CBC) 1.4 K/uL (0.7-4.9); Absolute Monocytes 0.6 K/uL (0.1-1.3); Absolute Neutrophil 5.6 K/uL (1.8-8.0); Basophils % 0.8 % (0-1.3); Eosinophils % 1.3 % (0-4.4); Hematocrit 42.1 % (39.6-49.0); Lymphocytes % 17.9 % (15.3-44.8); MCH 30.1 pg (27.0-35.0); MCV 92.1 fL (80-100); MPV 9.3 fL (7.6-11.3); Monocytes % 8.1 % (3.3-12.3); RBC Red Blood Cell Count 4.57 M/uL (4.33-5.43)
[2017-10-29 06:16] LABS: Potassium 3.6 mmol/L (3.5-5.1)
[2017-10-29] MEDS ORDERED: REGADENOSON 0.4 MG/5 ML SYR IV ONE (08:00)
[2017-10-29] MEDS: CEFEPIME/SWI 2gm 2 GM/20 ML SYR IV SCH (08:47)
[2017-10-29] MEDS ORDERED: Meropenem 1,000 MG in NA CHLORIDE 0.9% 100 ML IV SCH (10:00)
--- NOTE | 2017-10-29 10:30 | RAD REPORT ---
EXAM DESCRIPTION: NM - Rest Stress Cardiac Imaging - 10/29/2017 10:21 am CLINICAL HISTORY: Chest pain COMPARISON: None. TECHNIQUE: The patient was administered 10.4 mCi of Tc 99m Sestamibi prior to resting SPECT imaging of the heart. The patient was then administered 30.2 mCi of Tc 99m Sestamibi following exercise or ph armacologic stress. Multiplanar SPECT images were reviewed. FINDINGS: The end diastolic volume is 147 ml, the end systolic volume is 79 ml, and the ejection fra ction is 46 %. A small to moderate-sized area diminished activity is seen in the anterior wall mid in apex portion. This abnormality is not seen on the rest sequencing. Diminished activity along the inferior wall does not change between rest and stress imaging. IMPRESSION: Anterior wall stress ischemia. Inferior wall fixed defect from scarring or attenuation artifact. End-diastolic volume is enlarged at 147 milliliters. Ejection fraction was 46%.
[2017-10-29] MEDS: Meropenem 500 MG in NA CHLORIDE 0.9% 100 ML IV SCH ×2 (10:51→16:11)
--- NOTE | 2017-10-29 11:47 | ECHO ---
HEIGHT: 6 ft 4 in WEIGHT: 201 lb 0 oz DATE OF STUDY: 10/29/[address]: Juan Mann MD 2-DIMENSIONAL: YES M.MODE: YES DOPPLER: YES COLOR FLOW: YES TDS: PORTABLE: DEFINITY: BUBBLE STUDY: DIAGNOSIS: ABNORMAL TROPONIN CARDIAC HISTORY: CATHERIZATION: NO SURGERY: NO PROSTHETIC VALVE: NO PACEMAKER: NO MEASUREMENTS (cm) DIASTOLIC (NORMALS) SYSTOLIC (NORMALS) IVSd 1.0 (0.6-1.2) LA Diam 3.8 (1.9-4.0) LVEF 66% LVIDd 5.0 (3.5-5.7) LVIDs 3.2 (2.0-3.5) %FS 37% LVPWd 1.1 (0.6-1.2) Ao Diam 2.7 (2.0-3.7) 2 DIMENSIONAL ASSESSMENT: RIGHT ATRIUM: NORMAL LEFT ATRIUM: NORMAL RIGHT VENTRICLE: NORMAL LEFT VENTRICLE: NORMAL TRICUSPID VALVE: NORMAL MITRAL VALVE: NORMAL PULMONIC VALVE: NORMAL AORTIC VALVE: NORMAL PERICARDIAL EFFUSION: NONE AORTIC ROOT: NORMAL LEFT VENTRICULAR WALL MOTION: NORMAL DOPPLER/COLOR FLOW: MILD MITRAL REGURGITATION. COMMENTS: NORMAL 2-DIMENSIONAL ECHOCARDIOGRAM WITH DOPPLER. MILD MITRAL REGURGITATION. TECHNOLOGIST: NEERU HAMMOND
--- NOTE | 2017-10-29 12:08 | TREADPHA ---
DX: ELEVATED TROPONIN Date of Study: 10/29/2017 Ht: 6 4 Wt: 201 lb 0 oz Consulting Physician: JEANNINE MEDICATIONS: TYELNOL, ZOFRAN HISTORY: 67 YEAR OLD MALE HERE FOR ELEVATED TROPONIN. NO SIGNIFICANT PAST MEDICAL HISTORY PHYSICIAL EXAMINATION: RESTING B.P.: 140/86 RESTING H.R.: 68 RESTING EKG: NORMAL PROTOCOL: LEXISCAN EXERCISE TIME: 3:30 B.P. AT PEAK STRESS: 133/85 IMPRESSION: LEXISCAN STRESS TEST PERFORMED. CARDIOLITE INJECTED PER PROTOCOL. PREMATURE VENTRICULAR COMPLEXES NOTED DURING AND POST STRESS TEST. DENIES ANY CHEST PAIN. SEE NUCLEAR MEDICINE REPORT. NON-DIAGNOSTIC ELECTROCARDIOGRAM LEXISCAN STRESS.
[2017-10-29] MEDS ORDERED: Meropenem 500 MG VIAL IV SCH (17:00)
[2017-10-29] MEDS ORDERED: Meropenem 500 MG in NA CHLORIDE 0.9% 100 ML IV SCH (17:00)
--- NOTE | 2017-10-29 17:09 | PN ---
Subjective: The patient is feeling well. He is ambulating well. Objective: Urine culture grew E coli ESBL only sensitive to gentamicin, cefoxitin, cefotetan, and me ropenem. He will be on 14 days, total of IV antibiotics. He is on meropenem 3 times a day. Plan: PICC line will be placed hopefully tonight and go home tomorrow once Home Health is arranged a nd antibiotics are arranged. He can follow up with me in 2 weeks in the office for a cystoscopy, Uro flow. We know all the option for them is leading towards UroLift if possible. If not, he may need a vaporization versus TURP. RODRICK/SUHAIL Voice ID: [id number] Report ID: [id number]
--- NOTE | 2017-10-29 17:24 | PN ---
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 He had an elevation in enzymes and now the stress test indicates anterior ischemia. I have recommended a cardiac cath to brisas whitman. He never had any chest pain with this. So, I think we are not forced him to doing things quickly . I certainly would not like to place a stent while he is actively infected with E coli unless it be comes an emergency, is not in emergencies. So I would recommend a cardiac cath, possible stent to brissa whitman. I think we should probably wait a couple weeks between now and then he should be on aspirin, p.r. n. nitroglycerin. Since he has had the appropriate course of intravenous antibiotics and the pyelone phritis has resolved, I think we can do the case. DIGNA Voice ID: [id number] Report ID: [id number]
--- NOTE | 2017-10-29 17:48 | PN ---
Date of Progress Note: 10/29/2017 Subjective: The patient was seen and examined. Chart reviewed and case discussed with RN. The ben ent had questions regarding his treatment plan, which was explained to at the bedside. All ques tions answered. The patient will need a PICC line placement for long-term IV antibiotics as he is gr owing ESBL Escherichia coli in his urine. The patient also went down for a stress test today. Denie s any chest pain or shortness of breath. Review of Systems: Negative except as above. Medications: Reviewed. Physical Examination: Vital Signs: Temperature 97.5, heart rate 60, blood pressure 105/70, respirations 20, O2 98% on room air. General: Awake, alert, oriented x3, not in any acute distress. Elderly male, somewhat ill-appearing . CV: S1, S2. No murmurs. Regular rate and rhythm. Peripheral pulses present. Respiratory: Clear to auscultation bilaterally. No wheezing Gastrointestinal: Abdomen is soft, non tender, nondistended. Positive bowel sounds. Extremities: No clubbing, cyanosis, or edema. Neurologic: Nonfocal. Laboratory Data: Sodium 141, potassium 3.6, chloride 105, CO2 27, BUN 13, creatinine 0.9, glucose 87 , calcium 8.8. WBC 7.8, H and H are 13.8 and 42.1, platelets 269. Urine culture growing ESBL Escher ichia coli. Blood cultures: No growth to date. Cardiac stress test shows anterior wall stress isch emia, inferior wall fixed defect from scarring or attenuation artifact. Echocardiogram shows EF 66%. Assessment: A 67-year-old male with: 1.Sepsis secondary to urinary tract infection with extended-spectrum beta-lactamase Escherichia coli . We will adjust the IV antibiotics and switch to meropenem. Vancomycin has been discontinued as bl ood cultures have been negative. 2.Urinary tract infection, acute cystitis with hematuria, urine culture growing extended-spectrum be ta-lactamase Escherichia coli, switched over to meropenem now. We will need PICC line in 2 weeks of long-term IV antibiotics. Appreciate Dr. Lopez's input. 3.Acute dehydration, improved with IV fluids. 4.Benign prostatic hyperplasia with some retention. The patient refused Flomax. Dr. Lopez has been consulted. The patient deciding if he is willing to try finasteride or other medication. 5.Elevated troponin level. The patient had come in with troponin level 2 days ago, which was furthe r elevated. However, left AMA; not having any current chest pain. Stress test was done by Dr. Mildred shepard shows anterior wall stress ischemia, inferior wall fixed defect from scarring or attenuation defect . We will follow up with Cardiology. 6.Elevated liver enzymes. Hepatitis panel pending. 7.Lactose intolerance. 8.Gastrointestinal and deep venous thrombosis prophylaxis with PPI and SCDs. No chemical anticoagul ation due to hematuria. Plan: Obtain PICC line. Social Work consult. and the patient want Home Health for long-term I V antibiotics, did not wish to go to SNF. /SUHAIL Voice ID: [id number] Report ID: [id number]
[2017-10-30] MEDS: Meropenem 500 MG in NA CHLORIDE 0.9% 100 ML IV SCH ×2 (00:04→08:35)
[2017-10-30] MEDS: ACETAMINOPHEN 500 MG TAB PO PRN (00:11)
[2017-10-30 06:44] LABS: Absolute Lymphocytes (CBC) 1.3 K/uL (0.7-4.9); Absolute Monocytes 0.5 K/uL (0.1-1.3); Absolute Neutrophil 2.5 K/uL (1.8-8.0); Basophils % 1.2 % (0-1.3); Eosinophils % 2.5 % (0-4.4); Hematocrit 38.8 % (39.6-49.0); Lymphocytes % 29.3 % (15.3-44.8); MCH 30.1 pg (27.0-35.0); MCV 91.2 fL (80-100); MPV 7.9 fL (7.6-11.3); Monocytes % 11.3 % (3.3-12.3); RBC Red Blood Cell Count 4.26 M/uL (4.33-5.43)
[2017-10-30 06:59] LABS: Potassium 3.6 mmol/L (3.5-5.1)
--- NOTE | 2017-10-30 08:35 | RAD REPORT ---
EXAM DESCRIPTION: RAD - Chest Single View - 10/29/2017 11:11 pm CLINICAL HISTORY: Device placement PICC line placement COMPARISON: October 27, 2017 FINDINGS: A PICC line has been inserted with its tip in the superior vena cava. The lungs appear clear of acute infiltrate. The heart is normal size. IMPRESSION: PICC line with its tip in the superior vena cava
[2017-10-30] MEDS ORDERED: ASPIRIN EC 81 MG TAB PO SCH (09:00)
[2017-10-30 09:33] VITALS: O2SAT 96
[2017-10-30 15:11] VITALS: BP 147/77; TEMP 97.5
[2017-10-31 03:53] LABS: HBsAG Nonreactive (Nonreactive); Hepatitis A IgM Antibody Nonreactive
--- NOTE | 2017-10-31 05:22 | DS ---
Date of Discharge: 10/30/2017 Consultants: 1.Dr. Mann with Cardiology. 2.Dr. Lopez with Urology. Admitting Diagnoses: A 67-year-old male with: 1.Acute dehydration. 2.Systemic inflammatory response syndrome, rule out sepsis. 3.Urinary tract infection, acute cystitis with hematuria. 4.Benign prostatic hyperplasia. 5.Elevated liver enzymes. 6.Elevated troponin level. Discharge Diagnoses: 1.Sepsis, secondary to urinary tract infection secondary to extended-spectrum beta-lactamase Escheri nadia coli. 2.Urinary tract infection, acute cystitis with hematuria, secondary to extended-spectrum beta-lactam ase Escherichia coli. 3.Acute dehydration, resolved. 4.Benign prostatic hypertrophy with retention. 5.Elevated troponin level, likely cux-LB-plecsikib myocardial infarction. Positive stress test. We will need cardiac cath as an outpatient. 6.Elevated liver enzymes. 7.Lactose intolerance. Hospital Course: The patient is a 67-year-old male, really with no significant past medical history other than BPH, not on any alpha blockers, who comes in with some chills and lethargy. The patient w as in the ER 2 days ago and was found to have elevated troponin level, likely NSTEMI; however, he lef t AMA. The patient on this admission was found to be septic with elevated core body temperature. So urce of infection was UTI. The patient does have some urinary retention secondary to his BPH, howeve r, has been refusing to take tamsulosin. The patient was started on IV antibiotics. Cardiology and Neurology were consulted. The patient was found to have ESBL E coli growing in his urine. His antib iotics were changed and switched over to meropenem. PICC line was placed. He will need IV antibioti cs for a minimum of 2 weeks. The patient was seen by Dr. Lopez who recommended tamsulosin and the richa britton refused due to side effects. He also did not wish to start finasteride or other medications at this time. He will follow up with Dr. Lopez as an outpatient for further evaluation and workup. Re garding his elevated troponin level, the patient had NSTEMI on in his initial stay. When he left [place] , he was seen by Dr. Mann of Cardiology and stress test was done which was positive for anterior is chemia. The patient will likely need cardiac catheterization as an outpatient. Dr. Mann recommend ed outpatient stress test currently due to his active sepsis and infection and does not wish to have any instrumentation during this septic. Once his antibiotics are completed, he may go for cardiac ca theterization. The patient was started on aspirin. The patient was then doing better. His sepsis i mproved. He was no longer febrile. His white count normalized. His blood cultures did not show any growth. The patient was then cleared for discharge and was sent home with home health for IV antibi otics treatment. The patient refused any sort of SNF placement. Followup: Follow up with PCP in 2 to 3 days. Follow up with air value tester, Dr. Mann, in 2 weeks. Follow up with urologist, Dr. Lopez, in 2 weeks. Return to ER for worsening condition. Diet: Heart healthy. Activity: As tolerated. Medications: As per medication reconciliation list. Physical Examination: General: Awake, alert, oriented, in no acute distress. CV: S1, S2. No murmurs. Respiratory: Clear to auscultation bilaterally. No wheezing. Gastrointestinal: Abdomen is soft, nontender, and nondistended. Positive bowel sounds. Extremities: No clubbing, cyanosis, or edema. Neurologic: Nonfocal. Total time spent discharging the patient was 43 minutes. /SUHAIL Voice ID: [id number] Report ID: [id number]
== END 2017-10-30 12:43 | disposition home health service (06) | DRG 871 ==
LOC: ER 09:34 → ERHOLD 12:24 → 2ND 14:09
PROVIDERS: ADMIT Family Medicine; ATTEND Family Medicine
PROC: 02HV33Z Insertion of Infusion Device into Superior Vena Cava, Percutaneous Approach (ICD-10-PCS; principal; 2017-10-29)
DX: A41.9 Sepsis, unspecified organism (principal); I21.4 Non-ST elevation (NSTEMI) myocardial infarction; N30.01 Acute cystitis with hematuria; B96.20 Unspecified Escherichia coli [E. coli] as the cause of diseases classified elsewhere; Z16.12 Extended spectrum beta lactamase (ESBL) resistance; E86.0 Dehydration; N40.1 Benign prostatic hyperplasia with lower urinary tract symptoms; R33.8 Other retention of urine; R74.8 Abnormal levels of other serum enzymes; E73.9 Lactose intolerance, unspecified
CPT/HCPCS: 36415; 71045; 78452; 80048; 80074; 80076; 81003; 81015; 82550; 82553; 83605; 83690; 84145; 84484; 85025; 85610; 85652; 85730; 86140; 87040; 87077; 87086; 87088; 87186; 87804; 90670; 93005; 93017; 93306; 96374; 99284; 99285; A9500; G0009; J0692; J0696; J2785; J7030

== ENCOUNTER 2017-11-19 08:49 | Day surgery (SDC) | payer OTHER ==
[2017-11-16 10:35] LABS: Protime INR 0.92
[2017-11-19] MEDS ORDERED: HEPA 1000U/500MLS 2,000 UNIT/1,000 ML BAG IV ONE (08:58)
[2017-11-19] MEDS ORDERED: NA CHLORIDE 0.9% 500 ML ONE (09:01)
[2017-11-19] MEDS ORDERED: LIDOCAINE 1% MPF 5 ML VIAL ONE (09:04)
[2017-11-19] MEDS ORDERED: FENTANYL CITR 100 MCG/2 ML ONE (13:31)
[2017-11-19] MEDS ORDERED: HEPARIN 5000 UNIT/ML 1 ML VIAL ONE (13:31)
[2017-11-19] MEDS ORDERED: MIDAZOLAM HCL 2 MG/2 ML INJ ONE ×2 (13:31→13:57)
[2017-11-19] MEDS ORDERED: NICARDIPINE HCL 25 MG/10 ML IV ONE (13:32)
--- NOTE | 2017-11-19 15:14 | OP ---
Surgeon: Juan Mann MD Identification: Mr. Johnson is 67. Primary Care Physician: Brooklyn Casas D.O. Procedure: Left heart catheterization with coronary left ventricular angiography. Indication: Abnormal nuclear stress test with abnormal troponins. Procedure Findings: The patient has normal coronary arteries, normal left ventricular ejection fract ion, normal pressures. It is a completely normal cardiac cath. Procedure In Detail: The patient was brought to the cardiac laboratory associate in a fasting state, sedated wit h Versed and fentanyl. Prepared and draped in the usual sterile fashion. Right radial approach was used. The tissues over the right radial artery were anesthetized with 1% lidocaine. The artery was entered using a 21-gauge needle. We then used a 0.021-inch diameter guidewire to cannulate the arter y and we used this to insert a Terumo radial sheath, 6-Macedonian using the modified Seldinger technique. As soon as the sheath was in place, it was flushed and a radial cocktail was given consisting of he bernard, nitroglycerin, and nicardipine. We advanced the TIG catheter into the ascending aorta using f luoroscopy and a Terumo Glidewire with a short radius J-tip. Guidewire was removed and the TIG keke ter was used to cannulate right coronary artery, left coronary artery, and left ventricle. After all the measurements were taken, decision was made not to do any further interventions. The catheter wa s removed over a J-wire. The sheath was flushed, removed, and the arteriotomy was closed using a TR band. Estimated Blood Loss: 5 cc. [facility] And Lab Director: Karen Welsh. Complications: None. CRISTIANA/SUHAIL Voice ID: [id number] Report ID: [id number]
[2017-11-19 15:21] VITALS: O2SAT 100
[2017-11-19 16:34] VITALS: BP 120/71
[2017-11-19 16:38] VITALS: TEMP 98
== END 2017-11-19 16:34 | disposition home or self-care (01) ==
LOC: CCL 08:49
PROVIDERS: ATTEND Internal Medicine
DX: R94.39 Abnormal result of other cardiovascular function study (principal); E73.9 Lactose intolerance, unspecified
CPT/HCPCS: 36415; 85610; 85730; 93458; C1893; J1644; J2250 ×2; J3010